=== PATIENT | female | born 2005 ===

== ENCOUNTER 2025-02-18 13:25 | Outpatient (REF) | payer MEDICAID, SELFPAY ==
--- OUTSIDE RECORDS SUMMARY | 2025-02-18 11:00 | XMS_ITS | Encounter Summary ---
Author Organization [employer] Address [address] [facility] 7 [place] [address] Care Team Providers Care Citrus Picker Name Role Phone Cathy Diop NP Primary Care Provider [phone] Reason for Visit * Reason Comments Transfer patient Encounter Details Date Type Department Care Team ([facility] st Contact Info) Description 02/18/2025 11:00 AM EDT Office Visit [facility] MED[facility]INE [address] [place], [place] [phone] Cathy Diop NP [address] [place] [address] Healthcare maintenance (Primary Dx); Other tobacco product nicotine dependence with nicotine-induced disorder; Nexplanon insertion Social History Tobacco Use Types Packs/Day Years Used Date Smoking Tobacco: Never Passive Smoke Exposure: Never Smokeless Tobacco: Never Alcohol Use Standard Drinks/Week Comments Never 0 (1 standard drink = 0.6 oz pur e alcohol) Depression Answer Date Recorded Patient Health Questionnaire-9 Score 7 02/18/2025 Patient Health Questionnaire-9 Score 7 02/18/2025 Last PHQ-9: Questionnaire Data Not on file 0 02/18/2025 Housing Stability Answer Date Recorded What is your housing situation today? I have joellen george 02/18/[address] you li ve. Do you have problems with any of the following? I am not sure 02/18/2025 Food Insecurity Answer Date Recorded Within the past 12 months, y ou worried that your food would run out before you got money to buy more: Never True 03/01/2024 Within the past 12 months,th e food you bought just didn't last and you didn't have enough money to get more: Never True 08/2023 Transportation Answer Date Recorded In the past 12 months, has l ack of transportation kept you from medical appts, meetings, work or from getting things needed for daily living? I am not sure 02/18/2025 Utilities Answer Date Recorded In the past 12 months, has t he electric, gas, oil or water company threatened to shut off services in your home? No 03/01/2024 Depression Answer Date Recorded Patient Health Questionnaire-2 Score 1 02/18/2025 Internet Access Answer Date Recorded Internet Access Q1 No 02/18/2025 Internet Access Q2 I do not want or need it 01/28 Comments No Sex and Gender Information Value Date Recorded Sex Assigned at Female 03/28/2022 10:34 AM EDT Legal Sex Female 10:34 AM EDT Gender Identity Female 03/28/2022 10:34 AM EDT Sexual Orientation Straight 03/28/2022 10 :34 AM EDT documented as of this encounter Last Filed Vital Signs Vital Sign Reading Time Taken Comments Blood Pressure 92/68 02/18/2025 10:46 AM EDT Pulse 59 02/18/2025 10:46 AM EDT Temperature 36.7 C (98.1 F) 02/18/2025 10:46 AM EDT Respiratory Rate 17 02/18/2025 10:46 AM EDT Oxygen Saturation 98% 02/18/2025 10:46 AM EDT Inhaled Oxygen Concentration - - Weight 52.7 kg (116 lb 3.2 oz) 02/18/2025 10:46 AM EDT Height 161.3 cm (5' 3.5 ) 02/18/2025 10:46 AM ED T Body Mass Index 20.26 02/18/2025 10:46 AM EDT documented in this encounter Functional Status * Over the past 2 weeks, how often have you been bothered by any of the following problems? Question Answer Date of Assessment Author Patient Health Questionnaire -2 Score 1 02/18/2025 12:07 PM EDT Romina Cunningham MA * Little interest or pleasure in doing things Answer Date of Assessment Author Several days 02/18/2025 12:07 PM EDT Romina Cunningham MA * Feeling down, depressed, or hopeless Answer Date of Assessment Author Not at all 02/18/2025 12:07 PM Romina Godoy MA * Trouble falling or staying asleep, or sleeping too much Answer Date of Assessment Author Several days 02/18/2025 12:07 PM Romina Godoy MA * Feeling tired or having little energy Answer Date of Assessment Author Nearly every day 02/18/2025 12:07 PM Romina Godoy MA * Poor appetite or overeating Answer Date of Assessment Author Several days 02/18/2025 12:07 PM Romina Godoy MA * Feeling bad about yourself - or that you are a failure or have let yourself or your family down Answer Date of Assessment Author Not at all 02/18/2025 12:07 PM Romina Godoy MA * Trouble concentrating on things, such as reading the newspaper or watching television Answer Date of Assessment Author Several days 02/18/2025 12:07 PM Romina Godoy MA * Moving or speaking so slowly that other people could have noticed? Or the opposite - being so fidgety or restless that you have been moving around a lot more than usual. Answer Date of Assessment Author Not at all 02/18/2025 12:07 PM Romina Godoy MA * Thoughts that you would be better off or hurting yourself in some way Answer Date of Assessment Author Not at all 02/18/2025 12:07 PM Romina Godoy MA * Patient Health Questionnaire-9 Score Answer Date of Assessment Author 7 02/18/2025 12:07 PM Romina Godoy MA * How difficult have these problems made it for you to do your work, take care of things at home, or get along with other people? Answer Date of Assessment Author Not difficult at all 02/18/2025 12:07 PM Romina Kearney MA * Over the last 2 weeks, how often have you been bothered by any of the following problems? Question Answer Date of Assessment Author Feeling nervous, anxious, or on edge 1 02/18/2025 12:07 PM Romina Godoy MA Not being able to stop or co ntrol worrying 2 02/18/2025 12:07 PM EDT Romina Cunningham MA Worrying too much about diff erent things 2 02/18/2025 12:07 PM EDT Romina Cunningham MA Trouble relaxing 2 02/18/2025 12:07 PM EDT Romina Cunningham MA Being so restless that it is hard to sit still 2 02/18/2025 12:07 PM EDT Romina Cunningham MA Becoming easily annoyed or irritable 2 02/18/2025 12:07 PM EDT Romina Cunningham MA Feeling afraid as if somethi ng awful might happen 0 02/18/2025 12:07 PM EDT Romina Cunningham MA GARRETT-7 Total Score 11 02/18/2025 12:07 PM EDT Romina Cunningham MA documented as of this encounter Miscellaneous Notes * Assessment & Plan Note - Cathy Diop NP - 02/18/2025 11:00 AM EDTAssociated Problem(s): Healthcare maintenance Orders: Chlamydia/N. Gonorrhoeae, PCR, Urine * Assessment & Plan Note - Cathy Diop NP - 02/18/2025 11:00 AM EDTAssociated Problem(s): Nicotine dependence with nicotine-induced disorder documented in this encounter Plan of Treatment Upcoming Encounters Date Type Department Care Team (Late st Contact Info) Description 04/18/2025 1:30 PM EST Office Visit [facility] MED[facility]INE [address] [place] [address] Cathy Diop NP [address] [place] [address] Scheduled Orders Name Type Priority Associated Diagnoses Orde r Schedule Insertion/Removal of Contraceptive Capsule Procedures Routine Ordered: 0 02/18/2025 documented as of this encounter Procedures Procedure Name Priority Date/Time Associated Diagnosis Comments POCT , URINE Routine 02/18/2025 12:06 PM EDT Nexplanon insertion CHLAMYDIA/TRICHOMON /NEISSERIA GONORRHOEAE, PCR, URINE Routine 02/18/2025 12:00 AM EDT Healthcare maintenance documented in this encounter Results * POCT Urine (02/18/2025 12:06 PM EDT) Preg Test, Ur Negative Negative, Indeterminate, None Detected, Invalid, Specimen unsatisfactory for evaluation, Weakly Positive, 2+ QC Media Lot # [id number] Lot# Expiration Date [id number] QC TEST 35,811 Urine 02/18/2025 12:0 6 PM EDT Cathy Diop NP POINT OF CARE TEST ENTER/EDIT OR DERABLES Final Result * Chlamydia/N. Gonorrhoeae, PCR, Urine (02/18/2025 12:00 AM EDT) CT PCR, Urine NOT DETECTED Not Detect. [facility] Comment:A not detected test result does not exclude the possibilityof infection because test results can be affected byimproper specimen collection, concurrent antibiotic therapy,or the number of organisms in the specimen which may bebelow the sensitivity of the test. As with many diagnostictests, results from the Xpert CT/NG assay should beinterpreted in conjunction with other laboratory andclinical data available to the clinician.The Xpert CT/NG assay should not be used for the evaluationof suspected sexual abuse or for other medico-legalindications. Additional testing is recommended in anycircumstance when false positive or false negative resultscould lead to adverse medical, social or psychologicalconsequences. NG PCR, Urine NOT DETECTED Not Detect. [facility] Comment:A not detected test result does not exclude the possibilityof infection because test results can be affected byimproper specimen collection, concurrent antibiotic therapy,or the number of organisms in the specimen which may bebelow the sensitivity of the test. As with many diagnostictests, results from the Xpert CT/NG assay should beinterpreted in conjunction with other laboratory andclinical data available to the clinician.The Xpert CT/NG assay should not be used for the evaluationof suspected sexual abuse or for other medico-legalindications. Additional testing is recommended in anycircumstance when false positive or false negative resultscould lead to adverse medical, social or psychologicalconsequences. Urine (Urine, Random) 02/18/2025 02/18/2025 1:32 PM EDT us Cathy Diop NP LAB URINE ORDERABLES Final Resul t [facility] [address] [place] [phone] documented in this encounter Visit Diagnoses Diagnosis Healthcare maintenance- Primary Other tobacco product nicotine dependence with nicotine-induced disorder Nexplanon insertion documented in this encounter Administered Medications Inactive Administered Medications - up to 3 most recent administrations Medication Order MAR Action Action Date Dose Rate Site lidocaine (Xylocaine) 1 % injection 100 mg 100 mg (10 mL), Injection, Once, On Mon02/18/25 at 1130, For 1 doseIndications:Nexplanon insertion Given 02/18/2025 11:30 AM EDT 100 mg documented in this encounter Additional Health Concerns Assessment Noted Time PHQ-9 Depression Total Score: 7 02/19/20 12:07 PM EDT documented as of this encounter Care Teams Citrus Picker Relationship Specialty Start Date End Date Cathy Diop NP [address] [place] [phone] PCP - General Family Medicine 11/23/23 documented as of this encounter
[2025-02-18 15:25] LABS: CT PCR Urine NOT DETECTED (Not Detect.); NG PCR Urine NOT DETECTED (Not Detect.)
--- OUTSIDE RECORDS SUMMARY | 2025-02-18 16:31 | XMS_ITS | Encounter Summary ---
Author Organization [employer] Address [address] [facility] [address] [place] [address] Care Team Providers Care Supervisor Electronics Testing Name Role Phone MichellCathy link HELENA Primary Care Provider [phone] Encounter Details Date Type Department Care Team (Latest Contact Info) Description 02/17/2025 Travel Social History Tobacco Use Types Packs/Day Years Used Date Smoking Tobacco: Never Passive Smoke Exposure: Never Smokeless Tobacco: Never Depression Answer Date Recorded Patient Health Questionnaire-9 [...] not want or need it 01/28 Comments Unknown Sex and Gender Information Value Date Recorded Sex Assigned at Female 03/28/2022 10:34 AM EDT Legal Sex Female 10:34 AM EDT Gender Identity Female 03/28/2022 10:34 AM EDT Sexual Orientation Straight 03/28/2022 10 :34 AM EDT documented as of this encounter Plan of Treatment Upcoming Encounters Date Type Department Care Team (Late st Contact Info) Description 04/18/2025 1:30 PM EST Office Visit [facility] MEDICINE [address] [place] [address] Cathy Diop NP [address] [place] [address] documented as of this encounter Visit Diagnoses Not on filedocumented in this encounter Additional Health Concerns Assessment Noted Time PHQ-9 Depression Total Score: 0 09/10/19 23 9:45 AM EDT documented as of this encounter Care Teams Supervisor Electronics Testing Relationship Specialty Start Date End Date Cathy Diop NP [address] [place] [address] PCP - General Family Medicine 11/23/23 documented as of this encounter
--- OUTSIDE RECORDS SUMMARY | 2025-02-18 16:31 | XMS_ITS | Clinical Summary ---
Author Organization [employer] Address [address] [facility] 7 [place] [address] Care Team Providers Care Dural Mechanic Name Role Phone ChikisCathy HELENA Primary Care Provider [phone] Allergies No known active allergies Medications sodium chloride ([place] Nasal Ducor) 0.65 % nasal sprayIndications: Viral syndrome 1-2 sprays on each nostril every 2-3 hours as needed for nasal congestion 30 mL 1 3 Active ibuprofen 400 MG tablet 1 tablet by oral route every 6 hours prn pain 2 Active albuterol 108 (90 Base) MCG/ACT inhalerIndication s:Mild intermittent asthma without complication 2 puff by inhalation route every 4 to 6 hours prn shortness of breath or wheezing 18 g 1 3 Active nicotine (Nicoderm CQ) 14 MG/24HR patch Place 1 patch on the skin 1 (one) time each day at the same time. 30 patch 5 03/20/20 25 Active Hospital, Clinic, or Other Facility Administered Medication Ordered Dose Route Frequency Start Date End Date Status lidocaine (Xylocaine) 1 % injection 100 mgIndications:Nexplanon insertion 100 mg IJ Once 02/18/2025 02/18/2025 Ended Active Problems Problem Noted Date Diagnosed Date Healthcare maintenance 02/18/2025 Assessment & Plan (02/18/2025 12:34 PM EDT): Orders: Chlamydia/N. Gonorrhoeae, PCR, Urine Nicotine dependence with nicotine-induced disord er 02/18/2025 Assessment & Plan (02/18/2025 12:34 PM EDT): Asthma 03/06/2024 Depressive disorder 11/21/2023 Exercise-induced asthma 09/09/2022 COVID-19 12/08/2020 Encounters Date Type Department Care Team Description 02/18/2025 11:00 AM EDT Office Visit [facility] MEDICINE [address] [place] [address] Cathy Diop NP Healthcare maintenance (Primary Dx); Other tobacco product nicotine dependence with nicotine-induced disorder; Nexplanon insertion 02/18/2025 Travel 02/17/2025 Telephone [facility] MEDICINE [address] [place] [address] Marti Hawkins MA chart prep 02/17/2025 Travel 02/11/2025 Patient Outreach [facility] [address] [place] [address] Cathy Diop NP Pre-visit Planning (SDOH negative, Tobacco screening negative. ) from Last 3 Months Immunizations Immunization Administration Dates Next Due DTaP 03/17/2010, 9,11/14/2006,07/10,03/01/2006 DTaP / Hep B / IPV 07/10/2006,03/01/2006 HPV, Quadrivalent 01/18/2017,02/18/2016 Hep A, ped/adol, 2 dose 11/07/2007,04/12/2007 Hep B, Adolescent or Pediatric 07/10/2006,2005,2005 Hib (HbOC) 11/14/2006,07/10/2006,03/01/2006 IPV 02/18/2016, 5,03/17/2010,08/07,07/10/2006,03/01/2006 Influenza injectable quadriv alent preservative free 05/27/2020,06/21/2019,03/26/2018,06/10,04/12/2007 Influenza, Split (incl. fidel fied surface antigen) 04/20/2011,04/02/2009 Influenza, live, intranasal 03/12/2008 MMR 03/17/2010,07/10/2006 MMRV 07/10/2006 Meningococcal MCV4P ACYW-135 01/18/2017 Meningococcal Polysaccharide A,C,Y,W-135 TT Conjugate 09/16/2022 Novel [id number] 04/02/2009 Pneumococcal Conjugate PCV 7 06/10/2008, 11/14/2006,07/10/2006,03/01 Tdap 01/18/2017 Varicella 03/17/2010,07/10/2006 Social History Tobacco Use Types Packs/Day Years Used Date Smoking Tobacco: Never Passive Smoke Exposure: Never Smokeless Tobacco: Never Tobacco Cessation:Counseling Given: Not Answered Alcohol Use Standard Drinks/Week Comments Never 0 [...] Orientation Straight 03/28/2022 10 :34 AM EDT Last Filed Vital Signs Vital Sign Reading [...] Mass Index 20.26 02/18/2025 10:46 AM EDT Plan of Treatment Upcoming Encounters Date Type Department Care Team ([facility] st Contact Info) Description 04/18/2025 1:30 PM EST Office Visit [facility] MEDICINE [address] [place], [place] [phone] Cathy Diop, HELENA [address] [place] [address] Health Maintenance Due Date Last Done Comments Family Planning (PISQ) 2020 Meningococcal B Vaccine (1 of 2 - Standard) 2021 Chlamydia and Gonorrhea Screening 02/03/2023 02/03/2022 Pneumococcal Vaccine: Pediatrics (0 to 5 Years) and At-Risk Patients (6 to 49) Years (1 of 2 - PCV) 2024 06/10/2008, 11/14/2006, 07/10/2006, Additional history exists COVID-19 Vaccine (2 - 2024- season) 2025 12/14/2023 Alcohol/Substance Use Screening 02/18/2026 02/18/2025 Depression Screening 02/18/2026 02/18/2025, 02/19/20 25 Disability Screening 02/18/2026 02/18/2025 SDOH Screening 02/18/2026 02/18/2025 Tobacco Screening 02/18/2026 02/18/2025 DTaP/Tdap/Td Vaccines (8 - Td or Tdap) 01/16/2034 01/17/2024, 01/18/2017, 03/17/2010, Additional history exists Zoster Vaccines (1 of 2) 2055 Hepatitis B Vaccines Completed 07/10/2006, 07/10/2006, 03/01/2006, Additional history exists HIB Vaccines Completed 11/14/2006, 06/29, 03/01/2006 Hepatitis A Vaccines Completed 11/07/2007, 04/12/20 07 MMR Vaccines Completed 03/17/2010, 06/29, 07/10/2006 Varicella Vaccines Completed 03/17/2010, 0 07/10/2006, 07/10/2006 IPV Vaccines Completed 02/18/2016, 04/28, 03/17/2010, Additional history exists HPV Vaccines Completed 01/18/2017, 02/18/2016 HIV Screening Completed 02/03/2022 Hepatitis C Screening Completed 02/03/2022 Meningococcal Vaccine Completed 09/16/2022, 017 RSV Patients and Patients Aged 60 years or older Completed 02/15/2024 Influenza Vaccine Completed 02/07/2025, , 03/13/2024, Additional history exists Fluoride Varnish Discontinued RSV under 20 months Aged Out No longe r eligible based on patient's age to complete this topic Rotavirus Vaccines Aged Out No longer eligible based on patient's age to complete this topic Procedures Procedure Name Priority Date/Time Associated Diagnosis Comments POCT , URINE Routine 02/18/2025 12:06 PM EDT Nexplanon insertion CHLAMYDIA/TRICHOMONA S/NEISSERIA GONORRHOEAE, PCR, URINE Routine 02/18/2025 12:00 AM EDT Healthcare maintenance ZZZ HISTORICAL HEPATITIS C AB W/REFL TO HCV RNA, QN, PCR Routine 02/03/2022 11:26 AM EDT HIV 1/2 ANTIGEN/ANTIBODY, FOURTH GENERATION W/RFL Routine 02/03/2022 11:26 AM EDT ZZZ HISTORICAL CHLAMYDIA/N. GONORRHOEAE RNA, TMA, UROGENITAL Routine 02/03/2022 11:26 AM EDT from Last 3 Months or Most Recently Relevant to Health Maintenance Results * POCT Urine (02/18/2025 12:06 PM EDT) Preg Test, Ur Negative Negative, Indeterminate, None Detected, Invalid, Specimen unsatisfactory for evaluation, Weakly Positive, 2+ QC Media Lot # [id number] Lot# Expiration Date ,[id number] QC TEST 35,811 Urine 02/18/2025 12:0 6 PM EDT Cathy Diop NP POINT OF CARE TEST ENTER/EDIT OR DERABLES Final Result * Chlamydia/N. Gonorrhoeae, PCR, Urine (02/18/2025 12:00 AM EDT) Pathologist [facility] CT PCR, Urine NOT DETECTED Not Detect. [facility] Comment:A not detected test result [...] NG PCR, Urine NOT DETECTED Not Detect. [facility] Comment:A not detected test result [...] 02/18/2025 02/18/2025 1:32 PM EDT us Cathy Chikis DAMPPROOFER LAB URINE ORDERABLES Final Resul t Performing Organization Address City/[facility] Co de Phone Number [facility] [address] [place] [phone] [phone] * HEPATITIS C AB W/REFL TO HCV RNA, QN, PCR (02/03/2022 11:26 AM EDT) HEPATITIS C ANTIBODY NON-REACT OSIRIS NON-REACT OSIRIS [facility] INDEX 0.17 <1.00 [facility] Comment: HCV antibody was non-reactive. There is no laboratory evidence of HCV infection. In most cases, no further action is required. However, if recent HCV exposure is suspected, a test for HCV RNA (test code 71615) is suggested. For additional information please refer to http://Parachute.Vonjour/faq/IGW27r2 (This link is being provided for informational/ educational purposes only.) 02/03/2022 11:2 6 AM EDT us Vandana Callejas DO HISTORICAL/NON ORDERABLE LAB S Final Result Performing Organization Address [facility] Co de Phone Number [facility] Critical access hospital [place] * CHLAMYDIA/N. GONORRHOEAE RNA, TMA, UROGENITAL (02/03/2022 11:26 AM EDT) Chlamydia trachomatis RNA, TMA, Urogenital NOT DETECTED NOT DETECTED [facility] COMMENT SEE COMMENT [facility] Comment: The analytical performance characteristics of this assay, when used to test SurePath(TM) specimens have been determined by [employer]. The modifications have not been cleared or approved by the FDA. This assay has been validated pursuant to the CLIA regulations and is used for clinical purposes. For additional information, please refer to https://education.Vonjour/faq/KQW588 (This link is being provided for information/ educational purposes only.) Neisseria gonorrhoeae RNA, TMA, Urogenital NOT DETECTED NOT DETECTED [facility] 02/03/2022 11:2 6 AM EDT Vandana Callejas DO HISTORICAL/NON ORDERABLE LAB S Final Result Performing Organization Address [facility] Co de Phone Number [facility] [address] * HIV 1/2 ANTIGEN/ANTIBODY,FOURTH GENERATION W/RFL (02/03/2022 11:26 AM EDT) HIV-1/2 ANTIGEN AND ANTIBODIES, 4TH GENERATION W/ REFLEX NON-REACT OSIRIS NON-REACT OSIRIS [facility] Comment: HIV-1 antigen and HIV-1/HIV-2 antibodies were not detected. There is no laboratory evidence of HIV infection. PLEASE NOTE: This information has been disclosed to you from records whose confidentiality may be protected by state law. If your state requires such protection, then the state law prohibits you from making any further disclosure of the information without the specific written consent of the person to whom it pertains, or as otherwise permitted by law. A general authorization for the release of medical or other information is NOT sufficient for this purpose. For additional information please refer to http://education.Vonjour/faq/PXG089 (This link is being provided for informational/ educational purposes only.) The performance of this assay has not been clinically validated in patients less than 2 years old. 02/03/2022 11:2 6 AM EDT Vandana Callejas DO LAB BLOOD ORDERABLES Final R esult Performing Organization Address [facility] Co de Phone Number [facility] [address] from Last 3 Months or Most Recently Relevant to Health Maintenance Insurance [facility] C3 Care Teams Dural Mechanic Relationship Specialty Start Date End Date Cathy Diop NP [address] [place] [phone] PCP - General Family Medicine 11/23/23
--- OUTSIDE RECORDS SUMMARY | 2025-02-18 16:31 | XMS_ITS | Encounter Summary ---
Author Organization [email or web address] Address [address] [place] [address] Care Team Providers Care Janitor Cleaner Name Role Phone MichellCathy link HELENA Primary Care Provider [phone] Encounter Details Date Type Department Care Team (Latest Contact Info) Description 02/18/2025 Travel Social History Tobacco Use Types Packs/Day [...] AM EDT documented as of this encounter Functional Status * Over the past 2 weeks, how often have you been bothered by any of the following problems? Question Answer Date of Assessment Author Patient Health Questionnaire -2 Score 1 02/18/2025 12:07 PM EDT Romina Cunningham MA * Little interest or pleasure in doing things Answer Date of Assessment Author Several days 02/18/2025 12:07 PM ALYSSAT Romina Cunningham MA * Feeling down, depressed, or hopeless Answer Date of Assessment Author Not at all 02/18/2025 12:07 PM EDT Romina Cunningham MA * Trouble falling or staying asleep, [...] of Assessment Author 7 02/18/2025 12:07 PM EDT Romina Cunningham MA * How difficult have these problems made it for you to do your work, take care of things at home, or get along with other people? Answer Date of Assessment Author Not difficult at all 02/18/2025 12:07 PM EDT Romina More MA * Over the last 2 weeks, how often have you been bothered by any of the following problems? Question Answer Date of Assessment Author Feeling nervous, anxious, or on edge 1 02/18/2025 12:07 PM Romina Godoy MA Not being able to stop or co ntrol worrying 2 02/18/2025 12:07 PM Romina Godoy MA Worrying too much about diff erent things 2 02/18/2025 12:07 PM Romina Godoy MA Trouble relaxing 2 02/18/2025 12:07 PM Romina Godoy MA Being so restless that it is hard to sit still 2 02/18/2025 12:07 PM Romina Godoy MA Becoming easily annoyed or irritable 2 02/18/2025 12:07 PM Romina Godoy MA Feeling afraid as if somethi ng awful might happen 0 02/18/2025 12:07 PM Romina Godoy MA GARRETT-7 Total Score 11 02/18/2025 12:07 PM Romina Godoy MA documented as of this encounter Plan of Treatment Upcoming Encounters Date Type Department Care Team (Late st Contact Info) Description 04/18/2025 1:30 PM EST Office Visit [facility] [address] [place] [address] Cathy Diop NP [address] [place] [address] documented as of this encounter Visit Diagnoses Not on filedocumented in this encounter Additional Health Concerns Assessment Noted Time PHQ-9 Depression Total Score: 7 02/19/20 25 12:07 PM EDT documented as of this encounter Care Teams Janitor Cleaner Relationship Specialty Start Date End Date Cathy Diop NP [address] [place] [address] PCP - General Family Medicine 11/23/23 documented as of this encounter
--- OUTSIDE RECORDS SUMMARY | 2025-02-18 16:31 | XMS_ITS | Encounter Summary ---
Author Organization [employer] Address [address] [facility] [address] [place] [address] Care Team Providers Care Concrete Handler Name Role Phone Cathy Diop NP Primary Care Provider [phone] Reason for Visit * Reason Onset Date Comments chart prep 02/17/2025 Encounter Details Date Type Department Care Team ([facility] st Contact Info) Description 02/17/2025 Telephone [facility] [address] [place] [address] Marti Hawkins MA chart prep Social History Tobacco Use Types Packs/Day Years [...] t he electric, gas, oil or water SERPs threatened to shut off services in your [...] AM EDT documented as of this encounter Miscellaneous Notes * Telephone Encounter - Marti Hawkins MA - 02/17/2025 1:03 PM EDT Chart Prep Labs: done Images: not applicable Referrals: not applicable Vaccines due: Covid, Flu, PCV20, and MMR Screenings: LMP, CHLAMYDIA/N. GONORRHOEAE RNA, TMA, UROGENITAL Overdue care gaps: SBIRT, PHQ-9, and GARRETT-7 documented in this encounter Plan of Treatment Upcoming Encounters Date Type Department Care Team (Late st Contact Info) Description 04/18/2025 1:30 PM EST Office Visit [facility] [address] [place] [address] Cathy Diop NP [address] [place] [address] documented as of this encounter Visit Diagnoses Not on filedocumented in this encounter Additional Health Concerns Assessment Noted Time PHQ-9 Depression Total Score: 0 09/10/19 23 9:45 AM EDT documented as of this encounter Care Teams Concrete Handler Relationship Specialty Start Date End Date Cathy Diop NP [address] [place] [id number] PCP - General Family Medicine 11/23/23 documented as of this encounter
--- OUTSIDE RECORDS SUMMARY | 2025-02-18 16:31 | XMS_ITS | Clinical Summary ---
Author Organization [facility] Address [address] [place] [address] Care Team Providers Care Layout Former Name Role Phone Unavailable Primary Care Provider Unavailabl e Social History Tobacco Use Types Packs/Day Years Used Date Smoking Tobacco: Never Assessed Comments Unknown Sex and Gender Information Value Date Recorded Sex Assigned at Not on file Legal Sex Female 9:03 PM EST Gender Identity Not on file Sexual Orientation Not on file Plan of Treatment Health Maintenance Due Date Last Done Comments Gonorrhea/Chlamydia Screening 2005 Varicella Vaccines (1 of 2 - 13+ 2-dose series) 2018 HPV Vaccines (1 - 3-dose series) 2020 Meningococcal B Vaccine (1 o f 2 - Standard) 2021 Annual Well Child Visit (3-2 1 years old) 06/23/2023 HIV Screening 06/23/2023 Hepatitis C Screening 06/23/2023 Social Influencers of Health Screening 06/23/2023 DTaP,Tdap,and Td Vaccines (1 - Tdap) 2024 Hepatitis B Vaccines (1 of 3 - 19+ 3-dose series) 2024 Depression Screening 05/29/2024 COVID-19 Vaccine (1 - 2023-2 5 season) 2025 Influenza Vaccine (#1) 2025 RSV Immunization Adult Patie nts (1 - 1-dose 75+ series) 2080 HIB Vaccines Aged Out No longer eligi ble based on patient's age to complete this topic Hepatitis A Vaccines Aged Out No long er eligible based on patient's age to complete this topic IPV Vaccines Aged Out No longer eligi ble based on patient's age to complete this topic MMR Vaccines Aged Out No longer eligi ble based on patient's age to complete this topic Meningococcal ACWY Vaccine Aged Out N o longer eligible based on patient's age to complete this topic Pneumococcal Vaccine: Pediat rics (0 to 5 Years) and At-Risk Patients (6 to 49 Years) Aged Out No longer eligible b ased on patient's age to complete this topic RSV Immunization Patients Un benji 20 months Aged Out No longer eligible b ased on patient's age to complete this topic
--- OUTSIDE RECORDS SUMMARY | 2025-02-18 16:31 | XMS_ITS | Clinical Summary ---
Author Organization [facility] Address [address] [place] [address] Care Team Providers Care Supervisor Liquefaction Name Role Phone Darlene Dhillon PA-C Primary Care Provider Source Comments PLEASE NOTE, if this patient is a minor, it may be UNLAWFUL to discuss sensitive information that is contained in these records (such as FAMILY PLANNING, MENTAL HEALTH or SUBSTANCE ABUSE) with the minor patient's parent or other person without the patient's specific authorization.[facility] Allergies No known active allergies Medications spacer Active albuterol sulfate (PROVENTIL) 2.5 mg /3 mL (0.083 %) nebulizer solution Take 3 mL by nebulization every 6 (six) hours as needed for wheezing Active albuterol sulfate 90 mcg/actuation inhaler Inhale 2 Puffs into the lungs every 4 (four) hours as needed Active ibuprofen (ADVIL,MOTRIN) 100 mg/5 mL suspension Take by mouth every 6 (six) hours as needed for fever Active ondansetron (ZOFRAN-ODT) 4 mg disintegrating tablet Take 1 Tab by mouth every 8 (eight) hours as needed for nausea Active Active Problems Problem Noted Date Diagnosed Date Mild intermittent asthma ([facility]) 02/15/2017 ASTHMA NOS 11/02/2006 Immunizations Immunization Administration Dates Next Due DTAP (7+)Non Interface 11/14/2006 DTAP (DAPTACEL),5 PERTUSSIS ANTIGENS 03/17/2010, 06/10/2008 DTaP-Hep B-IPV (Pediarix) 07/10/2006,03/01/2006 HEP B, PED/ADOL (FUJVVRB-X-FNAD/RECOMBIVAX-PEDS) 2005 HPV, QUADRIVALENT 01/18/2017,02/18/2016 Hep A, Ped/adol, 2 Dose 11/07/2007,04/12/2007 Hib (HbOC) 11/14/2006,07/10/2006,03/01/2006 INFLUENZA VIRUS VACCINE P&EM IC FORMULATION 04/02/2009 INFLUENZA VIRUS VACCINE,SPLI T,6-35 MO (NON-INTERFACE) 04/12/2007 INFLUENZA, SEASONAL, INJECTABLE 02/18/20 16,05/08/2015,04/20/2011,04/02,06/10/2008 IPV (IPOL) 03/17/2010,08/07/2008 MENINGOCOCCAL MCV4P (MENACTRA) 01/18/2017 MMR (MMR II/Priorix) 03/17/2010,07/10/2006 MMRV, Live (Proquad) 07/10/2006 PNEUMOCOCCAL CONJUGATE PCV 7 06/10/2008, 11/14/2006,07/10/2006,03/01 PPD 02/01/2012 TDAP 01/18/2017 Varicella (Varivax), Live Vaccine 03/17/2010 Family History Medical History Relation Name Comments Mental illness Father Bipolar disor benji Relationship: Father Other (See Comments) Father ADD Rel ationship: Father Depression Mother Depression Rela tionship: Mother Thyroid Disease Mother Relation Name Status Comments Father Mother Social History Tobacco Use Types Packs/Day Years Used Date Smoking Tobacco: Never Assessed Social Connections Answer Date Recorded Social Connections and Isolation 0 01/14/2019 Financial Resource Strain Answer Date R ecorded Financial Resource Strain 0 2018 Stress Answer Date Recorded Stress 0 01/14/2019 Physical Activity Answer Date Recorded Physical Activity 0 01/14/2019 Food Insecurity Answer Date Recorded Food 0 01/14/2019 Transportation Needs Answer Date Record ed Transportation 0 01/14/2019 Housing Stability Answer Date Recorded Housing 0 01/14/2019 Safety and Environment Answer Date Roosevelt rded Safety 0 01/14/2019 Utilities Answer Date Recorded Utilities 0 01/14/2019 Employment Answer Date Recorded Employment 0 01/14/2019 Comments Unknown Sex and Gender Information Value Date Recorded Sex Assigned at Female 01/18/2017 12:10 PM PDT Legal Sex Female 5:08 PM PDT Gender Identity Female 01/18/2017 12:10 PM PDT Sexual Orientation Not on file Last Filed Vital Signs Vital Sign Reading Time Taken Comments Blood Pressure 100/50 01/18/2017 2:05 PM EDT Pulse 88 01/18/2017 2:05 PM EDT Temperature 36.4 C (97.6 F) 01/18/2017 2:05 PM EDT Respiratory Rate 16 01/18/2017 2:05 PM EDT Oxygen Saturation 99% 06/11/2010 10:20 AM EST Inhaled Oxygen Concentration - - Weight 45.4 kg (100 lb) 01/18/2017 2:05 PM EDT Height 148.6 cm (4' 10.5 ) 01/18/2017 2:05 PM ED T Head Circumference 19.5 cm 11/07/2007 1:29 PM EDT Head Circumference Percentile 0.00% 11/07/2007 1:29 PM EDT Growth Chart: CDC (Girls, 0- 36 Months) Body Mass Index 20.54 01/18/2017 2:05 PM EDT Body Mass Index Percentile 79.68% 01/18/2017 2:0 5 PM EDT Growth Chart: CDC (Girls, 2- 20 Years) Plan of Treatment Not on file Insurance [place] Member Subscriber Plan / Payer (Ef fective 2016-Present) Name:Navjot Pyle Relation to Subscriber:Self Name:Navjot Pyle Payer ID:[id number] Group ID:Not on file Type:Medicaid Address: [address] [employer] Care Teams Supervisor Liquefaction Relationship Specialty Start Date End Date Darlene Dhillon PA-C [address] [place] [address] PCP - General 04/18/18
--- OUTSIDE RECORDS SUMMARY | 2025-02-18 16:31 | XMS_ITS | Patient Health Record ---
Author Organization [facility] Address [address] [place] [address] [id number] Support Name Relationship Address Phone Navjot Pyle Guarantor Unknown [phone] Reason For Referral No Information Social History Sex Assigned At : Social History Observation Description Sex Assigned At Female Social History HIV Risk Assessment Social Info Question Answer Notes Additional Questions Is an HIV Risk Asse ssment being conducted? No Reproductive Life Plan: Social Info Question Answer Notes Reproductive Life Plan: Do you want to have chil dren? Yes, I want to have children How long would you like to wait until you/your partner becomes ? not sure How sure are you that you will be able to use your control method without any problems? Sure Human Trafficking: Social Info Question Answer Notes Human Trafficking Experienced: No Sexual History: Social Info Question Answer Notes Sexual History: Sexual History Reviewed: Partner s, Practices, Protection/Past STIs, Prevention of , ___ Currently sexually active? Yes Sexually active with: Men Number of male partners 1 Your sexual activities include: anal intercourse, oral intercourse, vaginal intercourse Number of partners in past 3 months: 1 Number of partners in past year: 1 What is the client's primary method to prevent at the end of their visit? None/No Method (Specify Reason) Does your partner(s) currently have any STIs? No Counseling Provided: Social Info Question Answer Notes Counseling Provided Please indicate the length of time, in minutes, that counseling was provided. 6 Counseling Was Provided By: john Drugs/Alcohol: Social Info Question Answer Notes Drug/Alcohol Use Do you or have you used drugs? No Do you or have you used alcohol? No Food Access: Social Info Question Answer Notes Food Access The Client's current access to food is Secure Food Access Relationships: Social Info Question Answer Notes Relationships Has the client exper ienced any of the following: Client has never experienced harmful relationships Housing Social Info Question Answer Notes Housing The client's current living situation is: stable housing Tobacco Use: Social Info Question Answer Notes Tobacco Use: Do you/have you used tobacco? No Tobacco Smoking Status Never smoker Plan Of Treatment No Information Insurance Providers Payer Name Payer Address Payer Phone Subscriber Number Group Number Insured Name Patient Relationship to Insured Coverage Start Date Coverage End Date [place] ATT CLAIMS [address] [place] [id number] Navjot Pyle Self - patient is the insured
== END 2025-02-18 13:26 | disposition home or self-care (01) ==
LOC: HO.HHCLNP 13:25
PROVIDERS: Visit Provider Nurse Practitioner Family
DX: Z00.00 Encounter for general adult medical examination without abnormal findings (principal); Z11.3 Encounter for screening for infections with a predominantly sexual mode of transmission
CPT/HCPCS: 87491; 87591